=== PATIENT | male | born 2000 | race Caucasian/White ===

== ENCOUNTER 2019-10-23 20:06 | Emergency (ER) | payer BC ==
[2019-10-23] MEDS ORDERED: ACETAMINOPHEN TAB 325 MG TAB PO STA (20:34)
--- NOTE | 2019-10-23 20:50 | ED ---
General Adult HPI - General Chief complaint: Extremity Injury, Lower Stated complaint: RT ankle injury Time Seen by Provider: 10/23/19 20:23 Source: patient, RN notes reviewed, old records reviewed Mode of arrival: wheelchair Limitations: no limitations - History of Present Illness Initial comments: 18-year-old male patient proceeded to complain right ankle injury. Patient reports that he was playing video games in his house he was running in order to get back to the [employer]. He reports that he slipped of the right ankle inversion injury. Denies any trauma to head or neck. Denies any other injury. Denies any other acute complaints. - Related Data Home Medications Medication Instructions Recorded Confirmed No Known Home Medications 10/23/19 10/23/19 Allergies Allergy/AdvReac Type Severity Reaction Status Date / Time No Known Allergies Allergy Verified 10/23/19 22:16 Review of Systems ROS Statement: Those systems with pertinent positive or pertinent negative responses have been documented in the HPI. ROS Other: All systems not noted in ROS Statement are negative. Past Medical History Past Medical History: No Reported History History of Any Multi-Drug Resistant Organisms: None Reported Past Surgical History: No Surgical Hx Reported Past Psychological History: No Psychological Hx Reported Smoking Status: Never smoker Past Alcohol Use History: Occasional Past Drug Use History: None Reported General Exam - General Exam Comments Initial Comments: Constitutional: NAD, AOX3, Pt has pleasant affect. HEENT: NC/AT, trachea midline, neck supple, no lymphadenopathy. Posterior pharynx non erythematous, without exudates. External ears appear normal, without discharge. Mucous membranes moist. Eyes PERRLA, EOM intact. There is no scleral icterus. No pallor noted. Cardiopulmonary: RRR, no murmurs, rubs or gallops, no JVD noted. Lungs CTAB in anterior and posterior evans. No peripheral edema. Abdominal exam: Abdomen soft and non-distended. Abdomen non-tender to palpation in all 4 quadrants. Bowel sounds active in LLQ. No hepatosplenomegaly. No ecchymosis Neuro: CN II-XII grossly intact. No nuchal rigidity. No raccon eyes, no alamo sign, no hemotympanum. No cervical spinal tenderness. MSK: Right lateral malleolus is mildly tender to palpation. Soft tissue swelling is noted. No other focal area of tenderness. No midfoot tenderness. No posterior calf tenderness bilaterally, homans sign negative bilaterally. Posterior tibialis and radial pulse +2 bilaterally. Sensation intact in upper and lower extremities. Full active ROM in upper and lower extremities, 5/5 stregnth. Limitations: no limitations Course Vital Signs 10/23/19 20:07 Temperature 99.9 F H Pulse Rate 110 H Respiratory 20 Rate Blood Pressure 145/76 O2 Sat by Pulse 99 Oximetry Medical Decision Making - Medical Decision Making 18-year-old male patient presents ED with mechanical right ankle injury. Reports his ankle inversion injury. Patient will signs are stable, afebrile. Patient initial temperature was 99.9. Reports that he has not an before meals in the house or in the car and was hot when he got here. Denies any other symptoms. Denies any cough congestion recent sick contacts. Patient has some soft tissue on the lateral malleolus mild tenderness. Patient was reporting that he was having some pain radiating up towards the tibia. Repeat evaluation patient is not having any tenderness proximal tib-fib. Or in the foot. Only tender to the lateral malleoli. Neurovascularly intact. When films are negative for acute osseous process. Patient will be placed in a ankle stirrup splint. He'll be nonweightbearing. Will discharge the patient repeat follow- up. And will return here if condition worsens. Case discussed with Dr. Hawkins. Disposition Clinical Impression: Ankle sprain Disposition: HOME SELF-CARE Condition: Stable Instructions (If sedation given, give patient instructions): Ankle Sprain (ED) Additional Instructions: Use crutches. Do not bear weight on right lower extremity. Continue to wear ankle stirrup brace. Follow-up with primary care provider orthopedic consult tomorrow. Return to ER if condition worsens. Is patient prescribed a controlled substance at d/c from ED?: No Referrals: Evelin Mas DO [Primary Care Provider] - 1-2 days Dusty Escoto DO [Doctor of Osteopathic Medicine] - 1-2 days
--- NOTE | 2019-10-23 21:12 | XR ---
EXAMINATION TYPE: XR tibia fibula RT, XR foot complete RT, XR ankle complete RT DATE OF EXAM: 10/23/2019 CLINICAL HISTORY: Pain from fall injury. TECHNIQUE: Two views of the right leg are obtained. 3 views right ankle and 3 views right foot. COMPARISON: None. FINDINGS: There is no acute fracture or dislocation seen in the right tibia or fibula. The right kn ee knee joint appears within normal limits. The overlying soft tissue appears unremarkable. Images of the right ankle show moderate to severe soft tissue swelling over lateral malleolus. No acu te fracture or dislocation. Ankle mortise symmetry is preserved. Images of right foot show flexion in the toes. No acute fracture or dislocation. Joint spaces are pre served. IMPRESSION: There is no acute fracture or dislocation seen in the right leg, ankle, or foot.
[2019-10-23 22:24] VITALS: BP 124/80; PULSE 94; RESP 18; TEMP 98.7
== END 2019-10-23 22:31 | disposition home or self-care (01) ==
LOC: EC 20:06
DX: S93.401A Sprain of unspecified ligament of right ankle, initial encounter (principal); W01.0XXA Fall on same level from slipping, tripping and stumbling without subsequent striking against object, initial encounter; Y93.02 Activity, running; Y92.009 Unspecified place in unspecified non-institutional (private) residence as the place of occurrence of the external cause
CPT/HCPCS: 73590; 73610; 73630; 99284; 29515; L4350

== ENCOUNTER 2021-12-30 20:34 | Emergency (ER) | payer BC ==
[2021-12-30] MEDS ORDERED: SODIUM CHLORIDE 0.9% 1,000 ML IV STA (22:57)
[2021-12-30 22:59] VITALS: TEMP 98
--- NOTE | 2021-12-30 23:22 | XR ---
EXAMINATION TYPE: XR chest 1V portable DATE OF EXAM: 12/30/2021 COMPARISON: NONE HISTORY: Pain TECHNIQUE: Single view FINDINGS: Heart and mediastinum are normal. Lungs are clear. Diaphragm is normal. Bony thorax is inta ct. IMPRESSION: No active cardiopulmonary disease.
--- NOTE | 2021-12-30 23:25 | ED ---
Dizziness HPI - General Chief Complaint: Dizziness Stated Complaint: dizziness, lightheaded Time Seen by Provider: 12/30/21 22:48 Source: patient Mode of arrival: ambulatory Limitations: no limitations - History of Present Illness Initial Comments: This patient is 21-year-old man who presents with complaint that he has been feeling dizzy for approximately one week. He states that it feels like things are spinning. He does note that it seems to be a little worse when he eats or drinks anything. Patient states that movement also sometimes seems to make it worse. He denies having a feeling of lightheadedness. He has not noted headache ear pain or fullness or any change in hearing. No other change in sensation. No weakness. Patient has not had upper respiratory symptoms. He is not feeling lightheaded like he is going to pass out. MD Complaint: dizziness Onset/Timin -: week(s) Timing: gradual onset, waxing/waning Description: "room spinning" History of Same: No History of Trauma: No Severity: moderate Improves With: remaining still Worsens With: movement, other (eating) Associated Symptoms: denies other symptoms - Related Data Previous Rx's Medication Instructions Recorded lisinopriL [Zestril] 5 mg PO DAILY #14 tab 12/31/21 Allergies Allergy/AdvReac Type Severity Reaction Status Date / Time No Known Allergies Allergy Verified 12/30/21 20:50 Review of Systems ROS Statement: Those systems with pertinent positive or pertinent negative responses have been documented in the HPI. ROS Other: All systems not noted in ROS Statement are negative. Constitutional: Denies: fever, chills Eyes: Denies: eye pain, vision change ENT: Denies: ear pain, hearing loss, congestion Respiratory: Denies: cough, dyspnea Cardiovascular: Denies: chest pain, palpitations, syncope Gastrointestinal: Denies: abdominal pain, vomiting, diarrhea Genitourinary: Denies: dysuria, hematuria Musculoskeletal: Denies: back pain Skin: Denies: rash Neurological: Denies: headache, weakness Past Medical History Past Medical History: No Reported History History of Any Multi-Drug Resistant Organisms: None Reported Past Surgical History: No Surgical Hx Reported Past Psychological History: No Psychological Hx Reported Smoking Status: Never smoker Past Alcohol Use History: Occasional Past Drug Use History: None Reported General Exam Limitations: no limitations General appearance: alert, in no apparent distress Head exam: Present: atraumatic, normocephalic Eye exam: Present: normal appearance. Absent: scleral icterus, conjunctival injection ENT exam: Present: normal oropharynx, mucous membranes moist, TM's normal bilaterally, normal external ear exam Neck exam: Present: normal inspection, full ROM. Absent: meningismus Respiratory exam: Present: normal lung sounds bilaterally. Absent: respiratory distress, wheezes, rales, rhonchi, stridor Cardiovascular Exam: Present: regular rate, normal rhythm, normal heart sounds. Absent: systolic murmur, diastolic murmur, rubs, gallop GI/Abdominal exam: Present: soft. Absent: distended, tenderness, guarding, rebound, rigid, mass Extremities exam: Present: normal inspection, normal capillary refill. Absent: pedal edema, calf tenderness Back exam: Present: normal inspection Neurological exam: Present: alert Skin exam: Present: warm, dry, intact, normal color. Absent: rash Course Vital Signs 12/30/21 12/30/21 20:47 22:46 Temperature 98.2 F 98 F Pulse Rate 96 68 Respiratory 18 16 Rate Blood Pressure 131/90 140/103 O2 Sat by Pulse 98 99 Oximetry Medical Decision Making - Lab Data Result diagrams: 12/30/21 23:31 12/30/21 23:31 Lab Results 12/30/21 12/30/21 12/30/21 Range/Units 23:31 23:31 23:31 WBC 10.0 (3.8-10.6) k/uL RBC 5.42 (4.30-5.90) m/uL Hgb 17.0 (13.0-17.5) gm/dL Hct 48.5 (39.0-53.0) % MCV 89.5 (80.0-100.0) fL MCH 31.3 (25.0-35.0) pg MCHC 35.0 (31.0-37.0) g/dL RDW 13.0 (11.5-15.5) % Plt Count 254 (150-450) k/uL MPV 7.7 Neutrophils % 69 % Lymphocytes % 22 % Monocytes % 7 % Eosinophils % 1 % Basophils % 1 % Neutrophils # 6.9 (1.3-7.7) k/uL Lymphocytes # 2.2 (1.0-4.8) k/uL Monocytes # 0.7 (0-1.0) k/uL Eosinophils # 0.1 (0-0.7) k/uL Basophils # 0.1 (0-0.2) k/uL Sodium 139 (137-145) mmol/L Potassium 4.3 (3.5-5.1) mmol/L Chloride 101 (98-107) mmol/L Carbon Dioxide 22 (22-30) mmol/L Anion Gap 16 mmol/L BUN 19 (9-20) mg/dL Creatinine 1.00 (0.66-1.25) mg/dL Est GFR (CKD-EPI)AfAm >90 (>60 ml/min/1.73 sqM) Est GFR (CKD-EPI)NonAf >90 (>60 ml/min/1.73 sqM) Glucose 90 (74-99) mg/dL Plasma Lactic Acid Rush 1.1 (0.7-2.0) mmol/L Calcium 10.0 (8.4-10.2) mg/dL Total Bilirubin 0.6 (0.2-1.3) mg/dL AST 34 (17-59) U/L ALT 47 (4-49) U/L Alkaline Phosphatase 58 (38-126) U/L Troponin I (0.000-0.034) ng/mL Total Protein 7.7 (6.3-8.2) g/dL Albumin 5.0 (3.5-5.0) g/dL 12/30/21 Range/Units 23:31 WBC (3.8-10.6) k/uL RBC (4.30-5.90) m/uL Hgb (13.0-17.5) gm/dL Hct (39.0-53.0) % MCV (80.0-100.0) fL MCH (25.0-35.0) pg MCHC (31.0-37.0) g/dL RDW (11.5-15.5) % Plt Count (150-450) k/uL MPV Neutrophils % % Lymphocytes % % Monocytes % % Eosinophils % % Basophils % % Neutrophils # (1.3-7.7) k/uL Lymphocytes # (1.0-4.8) k/uL Monocytes # (0-1.0) k/uL Eosinophils # (0-0.7) k/uL Basophils # (0-0.2) k/uL Sodium (137-145) mmol/L Potassium (3.5-5.1) mmol/L Chloride (98-107) mmol/L Carbon Dioxide (22-30) mmol/L Anion Gap mmol/L BUN (9-20) mg/dL Creatinine (0.66-1.25) mg/dL Est GFR (CKD-EPI)AfAm (>60 ml/min/1.73 sqM) Est GFR (CKD-EPI)NonAf (>60 ml/min/1.73 sqM) Glucose (74-99) mg/dL Plasma Lactic Acid Rush (0.7-2.0) mmol/L Calcium (8.4-10.2) mg/dL Total Bilirubin (0.2-1.3) mg/dL AST (17-59) U/L ALT (4-49) U/L Alkaline Phosphatase (38-126) U/L Troponin I <0.012 (0.000-0.034) ng/mL Total Protein (6.3-8.2) g/dL Albumin (3.5-5.0) g/dL Disposition Clinical Impression: Dizziness, Hypertension Disposition: HOME SELF-CARE Condition: Good Instructions (If sedation given, give patient instructions): Dizziness (ED), Hypertension (ED) Prescriptions: lisinopriL [Zestril] 5 mg PO DAILY #14 tab Is patient prescribed a controlled substance at d/c from ED?: No Referrals: Evelin Mas DO [Primary Care Provider] - 1-2 days
[2021-12-31 00:30] LABS: ALT 47 U/L (4-49); AST 34 U/L (17-59); African American GFR (CKD) >90 (>60 ml/min/1.73 sqM); Alkaline Phosphatase 58 U/L (38-126); Anion Gap 16 mmol/L; Blood Urea Nitrogen 19 mg/dL (9-20); Carbon Dioxide 22 mmol/L (22-30); Chloride 101 mmol/L (98-107); Glucose 90 mg/dL (74-99); Non-African American GFR(CKD) >90 (>60 ml/min/1.73 sqM); Potassium 4.3 mmol/L (3.5-5.1); Sodium 139 mmol/L (137-145); Total Bilirubin 0.6 mg/dL (0.2-1.3); Total Protein 7.7 g/dL (6.3-8.2)
[2021-12-31 00:42] LABS: Basophils # (A) 0.1 k/uL (0-0.2); Basophils % (A) 1 %; Eosinophils # (A) 0.1 k/uL (0-0.7); Eosinophils % (A) 1 %; HCT 48.5 % (39.0-53.0); Lymphocytes # (A) 2.2 k/uL (1.0-4.8); Lymphocytes % (A) 22 %; MCH 31.3 pg (25.0-35.0); MCV 89.5 fL (80.0-100.0); Mean Platelet Volume 7.7; Monocytes # (A) 0.7 k/uL (0-1.0); Monocytes % (A) 7 %; Neutrophils # (A) 6.9 k/uL (1.3-7.7); Neutrophils % (A) 69 %; Platelet Count 254 k/uL (150-450); RBC 5.42 m/uL (4.30-5.90)
[2021-12-31] MEDS ORDERED: lisinopriL 10 MG TAB PO STA (00:57)
[2021-12-31 01:49] VITALS: BP 133/88; PULSE 78; RESP 15
== END 2021-12-31 01:50 | disposition home or self-care (01) ==
LOC: EC 20:34
DX: R42 Dizziness and giddiness (principal); I10 Essential (primary) hypertension; Z79.899 Other long term (current) drug therapy
CPT/HCPCS: 36415; 71045; 80053; 83605; 84484; 85025; 96360; 96361; 99284

== ENCOUNTER → 2022-01-15 | Outpatient (CLI) | payer BC ==
--- NOTE | 2022-01-16 08:22 | CT ---
EXAMINATION TYPE: CT brain w con CT DLP: 1064.3 mGycm, Automated exposure control for dose reduction was used. DATE OF EXAM: 01/15/2022 6:20 PM COMPARISON: None. CLINICAL INDICATION:Male, 21 years old with history of R42 DIZZINESS AND GIDDINESS Z84.89 FAMILY HX C A; PHH, Dizziness with episodes of syncope. Family hx of brain tumors TECHNIQUE: Axial CT images of the brain were obtained with coronal and sagittal reformats created and reviewed with contrast. Contrast used:100cc mL of Isovue 370 with IV Contrast, Oral contrast used: none. FINDINGS: Extra-axial spaces: No abnormal extra-axial fluid collections. Ventricular system: Within normal limits Cerebral parenchyma: No acute intraparenchymal hemorrhage or mass effect. The hall-white junction is well differentiated. No abnormal enhancement is seen after the administration of intravenous contras t. Cerebellum: Unremarkable. Mass effect: No evidence of midline shift. Intracranial vasculature: unremarkable Soft tissues: Normal. Calvarium/osseous structures: No depressed skull fracture. Paranasal sinuses and mastoid air cells: Clear. Visualized orbits: Orbital contents are intact. IMPRESSION: No acute intracranial process and no evidence to suggest intracranial mass.
== END | disposition home or self-care (01) ==
LOC: RADCTMAIN 17:54
PROVIDERS: ATTEND Family Medicine
DX: R42 Dizziness and giddiness (principal); Z84.89 Family history of other specified conditions
CPT/HCPCS: 70460; Q9967

== ENCOUNTER 2023-05-13 07:35 | Emergency (ER) | payer BC ==
[2023-05-13] MEDS ORDERED: IBUPROFEN 600 MG TAB PO STA (08:09)
--- NOTE | 2023-05-13 08:10 | ED ---
General Adult HPI - General Chief complaint: Extremity Injury, Lower Stated complaint: RIGHT KNEE PAIN Time Seen by Provider: 05/13/23 07:57 Source: patient, family, RN notes reviewed Mode of arrival: ambulatory Limitations: no limitations - History of Present Illness Initial comments: Patient is a 22-year-old male with no significant past medical history, presented to the emergency room today with a chief complaint of pain to right knee. Patient does admit that yesterday he dropped out to the mailbox. States that he came back he felt okay. States approximately middle of the night he woke up with some discomfort to the right knee. Noticed some swelling. States worse with certain movements. Denies any other complaints or any other symptoms. - Related Data Previous Rx's Medication Instructions Recorded lisinopriL [Zestril] 5 mg PO DAILY #14 tab 12/31/21 Ibuprofen [Motrin] 600 mg PO Q6HR PRN #40 day 05/13/23 Allergies Allergy/AdvReac Type Severity Reaction Status Date / Time No Known Allergies Allergy Verified 12/30/21 20:50 Review of Systems ROS Statement: Those systems with pertinent positive or pertinent negative responses have been documented in the HPI. ROS Other: All systems not noted in ROS Statement are negative. Past Medical History Past Medical History: No Reported History History of Any Multi-Drug Resistant Organisms: None Reported Past Surgical History: No Surgical Hx Reported Past Psychological History: No Psychological Hx Reported Smoking Status: Never smoker Past Alcohol Use History: Occasional Past Drug Use History: None Reported General Exam - General Exam Comments Initial Comments: General: The patient is awake and alert, in no distress, and does not appear acutely ill. Neck: The neck is supple Respiratory: Respirations are non-labored. Musculoskeletal: Patient does have some mild swelling to the right knee when compared bilaterally. Shows good range of motion. Does have tenderness over the anterior aspect of the right knee. Strength 5/5 with sensations intact. Pedal pulse 2+. Neurological: A&O x 3. CN II-XII intact, There are no obvious motor or sensory deficits. Coordination appears grossly intact. Speech is normal. Skin: Skin is warm and dry and no rashes or lesions are noted. Psychiatric: Normal mood and affect. Limitations: no limitations Course Vital Signs 05/13/23 07:50 Temperature 98.6 F Pulse Rate 100 Respiratory 20 Rate Blood Pressure 162/78 O2 Sat by Pulse 96 Oximetry Medical Decision Making - Medical Decision Making History was obtained from patient/Nurse/Family/ Initial assessment and chief complaint: Right knee pain Chronic conditions affecting care: None Social determinants affecting care: None Differential diagnosis included, but not limited to: Fracture, contusion, sprain, effusion Any imaging that may have been performed was also reviewed. I did an independent interpretation of the patient's imaging. My interpretation of mild effusion no fracture, dislocation. 22-year-old male presented to the emergency room today with a chief complaint of pain, swelling to the left knee. Does admit that he ran out to the mailbox there is no slip and fall or specific injury. Noticed some increased swelling to the knee today. 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 X-ray was obtained no foreign body. No other fracture or dislocation. Mild effusion. Discussed with patient about following with orthopedics. No sign of infection here in the emergency room. There is some swelling. No significant redness. No fever. Advised to watch for any signs of infection return for any concerns. Advised to continue with anti- inflammatories, follow with orthopedics and continue ice elevate. Patient states understanding and is agreement this plan. Disposition Clinical Impression: Knee pain, Fracture of hip Disposition: HOME SELF-CARE Instructions (If sedation given, give patient instructions): Knee Pain (ED) Additional Instructions: Please follow with orthopedics over the next 2 days. Continue to ice elevate the affected area. Use anti-inflammatories prescribed. Return for any other concerns. Prescriptions: Ibuprofen [Motrin] 600 mg PO Q6HR PRN #40 day PRN Reason: Pain Is patient prescribed a controlled substance at d/c from ED?: No Referrals: Evelin Mas DO [Primary Care Provider] - 1-2 days Irina Vieira DO [Doctor of Osteopathic Medicine] - 1-2 days Time of Disposition: 09:19
--- NOTE | 2023-05-13 08:29 | XR ---
EXAMINATION TYPE: XR knee complete RT DATE OF EXAM: 05/13/2023 8:25 AM CLINICAL INDICATION:Male, 22 years old with history of pain; [facility] COMPARISON: 10/23/2019 TECHNIQUE: XR knee complete RT; examined in Frontal, lateral and oblique projections. FINDINGS: Prepatellar soft tissue edema throughout the leg. There is thickening of the anterior zafar ex of the tibia similar prior on 10/23/2019. No evidence of any acute osseous pathology, or joint effu toni is noted. IMPRESSION: Prepatellar soft tissue edema No evidence for fracture.
[2023-05-13 10:06] VITALS: BP 136/78; PULSE 86; RESP 18; TEMP 98.1
== END 2023-05-13 09:47 | disposition home or self-care (01) ==
LOC: EC 07:35
DX: S72.001A Fracture of unspecified part of neck of right femur, initial encounter for closed fracture (principal); S89.91XA Unspecified injury of right lower leg, initial encounter; W22.8XXA Striking against or struck by other objects, initial encounter
CPT/HCPCS: 99283